=== PATIENT | female | born 1970 | race Caucasian/White ===

== ENCOUNTER 2019-09-22 12:59 | Outpatient (CLI) | payer OTHER, BC | END 2019-09-22 13:00 | disposition critical access hospital (66) | LOC: EMS 12:59 | PROVIDERS: ATTEND Surgery | DX: S09.90XA Unspecified injury of head, initial encounter (principal); W17.89XA Other fall from one level to another, initial encounter; Y92.89 Other specified places as the place of occurrence of the external cause; Y99.0 Civilian activity done for income or pay | CPT/HCPCS: A0425; A0429 ==

== ENCOUNTER 2019-09-22 13:17 | Emergency (ER) | payer OTHER, BC ==
--- NOTE | 2019-09-22 13:27 | ED Physician Documentation ---
PD HPI MAJOR TRAUMA - Stated complaint Stated Complaint: FALL - Chief complaint Chief Complaint: Trauma Hd/Nk - History obtained from History obtained from: Patient - History of Present Illness Mechanism of injury: Fell (She was at work in the back of a truck, she tripped and fell out of the truck and hit the back of her head on the ground. She is a moderate headache and a hematoma there without an abrasion or laceration area there is no loss of consciousness. No other injuries. Not anticoagulated.) Review of Systems Constitutional: reports: Reviewed and negative Cardiac: reports: Reviewed and negative Respiratory: reports: Reviewed and negative GI: reports: Nausea PD PAST MEDICAL HISTORY - Present Medications Home Medications: Ambulatory Orders Medication Instructions Recorded Confirmed Meclizine HCl 25 mg PO Q6H PRN #15 tab.chew 09/22/19 - Allergies Allergies/Adverse Reactions: Allergies Allergy/AdvReac Type Severity Reaction Status Date / Time No Known Drug Allergies Allergy Verified 09/22/19 13:24 PD ED PE NORMAL - Vitals Vital signs reviewed: Yes - General General: Alert and oriented X 3, No acute distress - HEENT HEENT: PERRL, EOMI, Other (There is a small tender hematoma to the left occiput, no overlying abrasion or laceration.) - Neck Neck: Other (Very mild upper C-spine tenderness) - Back Back: No spinal TTP - Neuro Neuro: Alert and oriented X 3, 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, No motor deficit, No sensory deficit, Normal speech Results - Vitals Vitals: Vital Signs - 24 hr 09/22/19 13:22 Temperature 36.7 C Heart Rate 68 Respiratory 16 Rate Blood Pressure 160/95 H O2 Saturation 97 Oxygen O2 Source Room air - Rads (name of study) CT Head and Cspine Radiology: EMP read contemporaneously (CARLOS ENRIQUED/MIMA, NAD) Departure - Departure Disposition: 01 Home, Self Care Clinical Impression: Concussion Qualifiers: Encounter type: initial encounter Loss of consciousness presence/duration: without LOC Qualified Code(s): S06.0X0A - Concussion without loss of consciousness, initial encounter Injury of head and neck Qualifiers: Encounter type: initial encounter Qualified Code(s): S09.90XA - Unspecified injury of head, initial encounter; S19.9XXA - Unspecified injury of neck, initial encounter Condition: Good Record reviewed to determine appropriate education?: Yes Instructions: ED Concussion Prescriptions: Meclizine HCl 25 mg PO Q6H PRN #15 tab.chew PRN Reason: Dizziness Comments: You can take the medicine as needed for the dizziness but remember that it is slightly sedating, do not drink or drive with it. Be very careful driving since you have vertigo for the next couple of days and also do not climb ladders etc. Return for new or worsening symptoms. Follow-up with your doctor next week if persistently symptomatic. Your blood pressure was elevated today on check into the emergency department. This does not mean that you have hypertension, it is a common phenomenon to come to the emergency department and have elevated blood pressure. I recommend that you see your primary care physician within the week to have it rechecked when you are feeling better. Forms: Activity restrictions
--- NOTE | 2019-09-22 13:47 | CT Report ---
Reason: head inj Procedure Date: 09/22/2019 Accession Number: [id number] / [id number] Procedure: CT - HEAD WO CPT Code: FULL RESULT: EXAM: CT HEAD EXAM DATE: 09/22/2019 01:41 PM. CLINICAL HISTORY: Head inj. Ground-level fall, headache COMPARISON: None. TECHNIQUE: Multiaxial CT images were obtained from the foramen magnum to the vertex. Reformats: Sagittal and coronal. IV contrast: None. In accordance with CT protocol optimization, one or more of the following dose reduction techniques were utilized for this exam: automated exposure control, adjustment of mA and/or KV based on patient size, or use of iterative reconstructive technique. FINDINGS: Parenchyma: No intraparenchymal hemorrhage. No evidence of mass, midline shift, or CT findings of infarction. Rodriguez-white differentiation is distinct. Extraaxial Spaces: Normal for age. No subdural or epidural collections identified. Ventricles: Normal in size and position. Sinuses and Orbits: Imaged paranasal sinuses, orbits, and mastoids show no significant abnormality. Bones: No evidence of fracture or calvarial defect. Other: None. IMPRESSION: Unremarkable head CT. RADIA
--- NOTE | 2019-09-22 14:09 | CT Report ---
Reason: head inj Procedure Date: 09/22/2019 Accession Number: [id number] / [id number] Procedure: CT - CERVICAL SPINE WO CPT Code: FULL RESULT: EXAM: CT CERVICAL SPINE WITHOUT CONTRAST DATE: 09/22/2019 01:41 PM. HISTORY: Head inj. COMPARISONS: None. TECHNIQUE: Thin-section axial images were acquired of the cervical spine without contrast. Post-processing: Coronal and sagittal reformats. Other: None. In accordance with CT protocol optimization, one or more of the following dose reduction techniques were utilized for this exam: automated exposure control, adjustment of mA and/or KV based on patient size, or use of iterative reconstructive technique. FINDINGS: Alignment: Cervical spine straightening. No spondylolisthesis. Bones: No fracture or bone lesion. Spondylosis with disk height loss and marginal osteophytosis, moderate to severe at C3/C4, C4/C5 and C5/C6. Degenerative atlantodens articulation. Interspace Levels/Facets: Moderate to severe disk height loss at C3/C4, C4/C5 and C5/C6 Musculature: Normal. No fatty atrophy. Other: The paravertebral and prevertebral soft tissues are unremarkable. Small tracheal diverticulum. IMPRESSION: 1. Cervical spine straightening without spondylolisthesis. 2. No fracture. 3. Moderate to severe spondylosis/degenerative disk disease at C3/C4, C4/C5 and C5/C6 RADIA
[2019-09-22 14:32] VITALS: BP 155/88
== END 2019-09-22 14:33 | disposition home or self-care (01) ==
LOC: ED 13:17
DX: S06.0X0A Concussion without loss of consciousness, initial encounter (principal); S00.03XA Contusion of scalp, initial encounter; S19.9XXA Unspecified injury of neck, initial encounter; W17.89XA Other fall from one level to another, initial encounter; Y99.0 Civilian activity done for income or pay; M50.31 Other cervical disc degeneration, high cervical region; R03.0 Elevated blood-pressure reading, without diagnosis of hypertension
CPT/HCPCS: 70450; 72125; 99283